=== PATIENT | male | born 1960 | race Caucasian/White ===

== ENCOUNTER 2016-08-26 19:33 | Emergency (ER) | payer BC, MEDICAID ==
[~2016-08-26] VITALS: Ht 175.3 cm; Wt 79.0 kg
[~2016-08-26 19:33] MED LIST: AMLO-218 PO; DAL15 PO; DIPH1TAB25 PO; ESOM20CA PO; FURO20TA3 PO; MIRALAX PO; OMEPRAZOLE PO
[2016-08-26 19:36] VITALS: Ht 175.3 cm; Wt 79.0 kg
--- NOTE | 2016-08-26 20:58 | ERA ---
ER Documentation Chief Complaint Date/Time DATE: 08/26/16 TIME: 20:57 Chief Complaint constipation with abdominal pain and vomiting for past 3 days HPI The patient is a 55-year-old male, presenting to the ER because of abdominal pain, associated with constipation and vomiting for the last 3 days. He had hemorrhoidectomy on July 04, 2016 and is taking [place] for pain. He was seen by his general surgeon 10 days ago. Denies fever, chills, neck pain, chest pain, dyspnea. The abdominal pain is diffuse, worse with constipation, he denies dysuria. He does not smoke, drinks socially Past medical history: Hypertension, cholelithiasis, history of peptic ulcer Past surgical history: Had colonoscopy and EGD in 2013 with polypectomy, history of insertion and removal of lap band in 2007 ROS All systems reviewed and are negative except as per history of present illness. Medications Home Meds Active Scripts Polyethylene Glycol* (Miralax*) 17 Gm Powd.pack, 17 GM PO DAILY, #7 Prov:WALDO SUMNER MD 08/27/16 Tramadol HCl (Tramadol HCl) 50 Mg Tablet, 50 MG PO Q6, #20 TAB Prov:WALDO SUMNER MD 08/27/16 Reported Medications [Miralax] No Conflict Check, PO 12/08/13 [Omeprazole] No Conflict Check, PO 12/08/13 Flurazepam HCl* (Dalmane*) 15 Mg Capsule, 15 MG PO HS Y for INSOMNIA, CAP 10/16/13 Diphenoxylate Hcl-Atropine* (Lomotil*) 1 Tab Tab, 1 TAB PO TID Y for DIARRHEA, TAB 10/16/13 Esomeprazole Mag Trihydrate (Nexium) 20 Mg Capsule.dr, 20 MG PO TID, CAP 10/16/13 Furosemide* (Furosemide*) 20 Mg Tablet, 20 MG PO DAILY, TAB 10/16/13 Amlodipine Besylate* (Norvasc*) 10 Mg Tablet, 10 MG PO DAILY, TAB 10/16/13 Allergies Allergies: Coded Allergies: Penicillins (Unverified Allergy, Unknown, 10/16/13) PMhx/Soc History of Surgery: Yes (PARTIAL GASTRECTOMY, STOMACH ABSCESS, ULCERS, LEFT WRIST) Anesthesia Reaction: No Hx Neurological Disorder: No Hx Respiratory Disorders: No Hx Cardiac Disorders: Yes (HTN) Hx Psychiatric Problems: No Hx Miscellaneous Medical Probl: No Hx Alcohol Use: Yes (OCCASIONAL) Hx Substance Use: No Hx Tobacco Use: No Physical Exam Vitals Vital Signs Date Time Temp Pulse Resp B/P Pulse Ox O2 Delivery O2 Flow Rate FiO2 08/26/16 23:16 62 16 146/84 99 Room Air 08/26/16 21:58 90 16 152/90 99 Room Air 08/26/16 19:36 97.8 100 18 160/82 97 Physical Exam Const: No acute distress. Head: Atraumatic. Eyes: Normal Conjunctiva. ENT: Normal External Ears, Nose and Mouth. Neck: Full range of motion. No meningismus. Resp: Clear to auscultation bilaterally. Cardio: Regular rate and rhythm, no murmurs. Abd: Soft, non distended, normal bowel sounds, vague and diffuse abdominal tenderness, no rigidity, rebound, CVA tenderness Skin: No petechiae or rashes. Back: No midline or flank tenderness. Ext: No cyanosis, or edema. Neur: Awake and alert. No focal deficit Psych: Normal Mood and Affect. Result Diagram: 08/26/16214408/26/162144 Results 24 hrs Laboratory Tests Test 08/26/16 21:45 White Blood Count 8.810^3/ul Red Blood Count 5.0010^6/ul Hemoglobin 14.0g/dl Hematocrit 43.6% Mean Corpuscular Volume 87.2fl Mean Corpuscular Hemoglobin 28.0pg Mean Corpuscular Hemoglobin Concent 32.1g/dl Red Cell Distribution Width 13.9% Platelet Count 43425^3/UL Mean Platelet Volume 11.8fl Neutrophils % 78.1% Lymphocytes % 10.1% Monocytes % 11.2% Eosinophils % 0.1% Basophils % 0.2% Nucleated Red Blood Cells % 0.0/100WBC Neutrophils # 6.910^3/ul Lymphocytes # 0.910^3/ul Monocytes # 1.010^3/ul Eosinophils # 0.010^3/ul Basophils # 0.010^3/ul Nucleated Red Blood Cells # 0.010^3/ul Sodium Level 145mmol/L Potassium Level 3.4mmol/L Chloride Level 108mmol/L Carbon Dioxide Level 30mmol/L Anion Gap 10 Blood Urea Nitrogen 9mg/dl Creatinine 0.72mg/dl Glucose Level 108mg/dl Calcium Level 9.4mg/dl Total Bilirubin 0.9mg/dl Direct Bilirubin 0.00mg/dl Indirect Bilirubin 0.9mg/dl Aspartate Amino Transf (AST/SGOT) 27IU/L Alanine Aminotransferase (ALT/SGPT) 37IU/L Alkaline Phosphatase 73IU/L Total Protein 7.7g/dl Albumin 4.4g/dl Globulin 3.30g/dl Albumin/Globulin Ratio 1.33 Lipase 33U/L Current Medications Medications (Trade) Dose Ordered Sig/Frankie Route PRN Reason Start Time Stop Time Status Last Admin Dose Admin Morphine Sulfate (morphine) 4 mg ONCE STAT IV 08/26/16 21:27 08/26/16 21:29 DC 08/26/16 21:44 Ondansetron HCl (Zofran Inj) 4 mg ONCE STAT IV 08/26/16 21:27 08/26/16 21:29 DC 08/26/16 21:43 Hydromorphone HCl (Dilaudid) 1 mg ONCE STAT IV 08/26/16 23:01 08/26/16 23:06 DC 08/26/16 23:14 Potassium Chloride (Klor-Con 20) 20 meq ONCE STAT PO 08/27/16 01:14 08/27/16 01:15 UNV Procedures/[place] [id number] Radiology Main Line: [phone] DIAGNOSTIC IMAGING REPORT Patient: JERI MASSEY : 1960 Age: 55 Sex: M [id number] DOS: 08/26/162126 Ordering MD: WALDO SUMNER MD Location: E/R Room/Bed: PROCEDURE: CT ABDOMEN/PELVIS WITHOUT CONTRAST CLINICAL INDICATION: 55-year-old male with abdominal pain. TECHNIQUE: The study was performed utilizing a [employer] VCT 64-slice CT scanner. Direct axial sections were obtained through the abdomen and pelvis without the use of intravenous contrast material. Sagittal and coronal reformations were obtained. One or more of the following dose reduction techniques were utilized: automated exposure control, adjustment of the mA and/ or kV according to patient's size or use of iterative reconstruction technique. The images were reviewed on a PACS workstation. CTD/vol = 10.1 mGy; Total Exam DLP = 607.2 mGy-cm. COMPARISON: N/retroperitoneum July 23, 2013. FINDINGS: There is mild lingular scarring. There is trace bibasilar subsegmental atelectasis. There is no evidence for significant pleural effusion. The liver has a normal size and contour without focal areas of abnormal density. No intrahepatic nor extrahepatic biliary ductal dilatation is seen. The gallbladder contains layering sludge as well as multiple non dependent cholesterol stones without significant wall thickening or pericholecystic fluid. The pancreas is atrophic but without areas of abnormal attenuation. The spleen is identified and has a normal size without abnormal density. The adrenal glands are unremarkable. There is a nonobstructing right mid renal calculus measuring 5 x 5 x 3 mm. The left kidney is without abnormal density, calculi or obstruction. The urinary bladder contains urine. There is evidence for prior gastric surgery. There is dilated fluid-filled loops of small bowel and colon extending to the rectosigmoid region where there is retained stool. The appendix is diminutive and is without abnormal thickening or surrounding inflammatory reaction. There is no significant free fluid. The aortoiliac vessels are without aneurysmal dilatation. Mild degenerative changes are seen within the spine. IMPRESSION: 1. Cholelithiasis. 2. Nonobstructing mid right renal calculus. 3. Prior gastric surgery. 4. Dilated fluid-filled loops of small bowel and colon with mild retained stool within the rectosigmoid region without obstruction. This is suggestive of an enteritis. Clinical correlation is necessary. 5. Mild degenerative changes within the spine. .Nikolai Evans MD, MD Date Time Electronically viewed and signed by .Nikolai Evans MD, on 08/26/2016 23:50 .M/ CC: WALDO SUMNER MD MEDICAL MAKING DECISION: The patient is a 55-year-old male, presenting with acute abdominal pain, most likely due to acute on chronic constipation, acute hypokalemia. He was treated with morphine 4 mg IV and then Dilaudid 1 mg IV for pain, Zofran 4 mg IV for nausea and potassium chloride 20 mEq p.o. for low potassium with good response The differential diagnoses considered include but are not limited to cholelithiasis, cholecystitis, cystitis, pancreatitis, hepatitis, gastritis, peptic ulcer disease, gastric ulcer, appendicitis, diverticulitis, cholangitis, choledocholithiasis, partial small bowel obstruction. Departure Diagnosis: Primary Impression: Abdominal pain Additional Impression: Constipation Condition: Good Comments He was discharged with Ultram and MiraLAX I discussed the findings with the patient. I advised the patient to follow-up with the primary physician in about 1-2 days, sooner if needed and return if any concern. WALDO SUMNER MD August 26, 2016 20:58
[2016-08-26] MEDS ORDERED: morphine 4 MG/ML VIAL IV STA (21:27)
[2016-08-26] MEDS ORDERED: ONDANSETRON 4 MG INJ IV STA (21:27)
[2016-08-26 22:01] LABS: ADD SCAN DIFF NO
[2016-08-26 22:04] LABS: BASOPHILS % 0.2 % (0.0-2.0); EOSINOPHILS % 0.1 % (0.0-7.0); HEMATOCRIT 43.6 % (42.0-52.0); LYMPHOCYTES # 0.9 10^3/ul (0.8-2.9); LYMPHOCYTES % 10.1 % (15.0-51.0); MEAN CORPUSCULAR HGB CONC 32.1 g/dl (32.0-37.0); MEAN CORPUSCULAR VOLUME 87.2 fl (82.0-101.0); MEAN PLATELET VOLUME 11.8 fl (7.4-10.4); MONOCYTES % 11.2 % (0.0-11.0); NEUTROPHIL # 6.9 10^3/ul (1.6-7.5); NEUTROPHILS % 78.1 % (39.0-77.0); PLATELET COUNT 193 10^3/UL (140-415); RED CELL DISTRIBUTION WIDTH 13.9 % (11.5-14.5); WHITE BLOOD COUNT 8.8 10^3/ul (4.8-10.8)
[2016-08-26 22:19] LABS: ALBUMIN 4.4 g/dl (3.3-4.9)
[2016-08-26 22:20] LABS: POTASSIUM 3.4 mmol/L (3.5-5.1)
[2016-08-26 22:22] LABS: ALBUMIN/GLOBULIN RATIO 1.33; BILIRUBIN,INDIRECT 0.9 mg/dl (0-1.1); BILIRUBIN,TOTAL 0.9 mg/dl (0.2-1.3); CREATININE 0.72 mg/dl (0.61-1.24); TOTAL PROTEIN 7.7 g/dl (6.1-8.1)
[2016-08-26 22:23] LABS: CALCIUM 9.4 mg/dl (8.4-10.2)
[2016-08-26] MEDS ORDERED: HYDROmorphONE 1 MG/ML SYG IV STA (23:01)
--- NOTE | 2016-08-26 23:51 | RADRPT ---
PROCEDURE: CT ABDOMEN/PELVIS WITHOUT CONTRAST CLINICAL INDICATION: 55-year-old male with abdominal pain. TECHNIQUE: The study was performed utilizing a [employer] VCT 64-slice CT scanner. Direct axia l sections were obtained through the abdomen and pelvis without the use of intravenous contrast mate rial. Sagittal and coronal reformations were obtained. One or more of the following dose reduction t echniques were utilized: automated exposure control, adjustment of the mA and/or kV according to pat ient's size or use of iterative reconstruction technique. The images were reviewed on a PACS workst [employer]. CTD/vol = 10.1 mGy; Total Exam DLP = 607.2 mGy-cm. COMPARISON: N/retroperitoneum July 23, 2013. FINDINGS: There is mild lingular scarring. There is trace bibasilar subsegmental atelectasis. There is no ev idence for significant pleural effusion. The liver has a normal size and contour without focal area s of abnormal density. No intrahepatic nor extrahepatic biliary ductal dilatation is seen. The gallb ladder contains layering sludge as well as multiple non dependent cholesterol stones without signifi cant wall thickening or pericholecystic fluid. The pancreas is atrophic but without areas of abnorma l attenuation. The spleen is identified and has a normal size without abnormal density. The adrenal glands are unremarkable. There is a nonobstructing right mid renal calculus measuring 5 x 5 x 3 mm. The left kidney is without abnormal density, calculi or obstruction. The urinary bladder contains urine. There is evidence for prior gastric surgery. There is dilated fluid-filled loops of small tianna wel and colon extending to the rectosigmoid region where there is retained stool. The appendix is diminutive and is without abnormal thickening or surrounding inflammatory reaction. There is no sign ificant free fluid. The aortoiliac vessels are without aneurysmal dilatation. Mild degenerative shamir nges are seen within the spine. IMPRESSION: 1. Cholelithiasis. 2. Nonobstructing mid right renal calculus. 3. Prior gastric surgery. 4. Dilated fluid-filled loops of small bowel and colon with mild retained stool within the rectosig moid region without obstruction. This is suggestive of an enteritis. Clinical correlation is necess kirsten. 5. Mild degenerative changes within the spine. .Nikolai Evans MD, MD Date Time Electronically viewed and signed by .Nikolai Evans MD, MD on 08/26/2016 23:50 .M/
[2016-08-27] MEDS ORDERED: POTASSIUM CHLORIDE (SR) 20 MEQ TAB PO STA (01:14)
[2016-08-27] MEDS ORDERED: TRAM50TA2 PO (01:15)
[2016-08-27] MEDS ORDERED: POLY17PO6 PO (01:16)
[2016-08-27 01:28] VITALS: BP 145/90; PULSE 59; RESP 18
== END 2016-08-27 01:31 | disposition home or self-care (01) ==
LOC: E/R 19:33
DX: R10.84 Generalized abdominal pain (principal); I10 Essential (primary) hypertension
CPT/HCPCS: 74176; 80053; 83690; 85025; J1170; J2270; J2405; Z7610; 36415; 96374; 96375

== ENCOUNTER 2017-09-17 20:17 | Emergency (ER) | END 2017-09-18 01:29 | disposition home or self-care (01) ==

== ENCOUNTER 2017-09-18 14:17 | Inpatient (IN) | END 2017-09-19 16:00 | disposition left against medical advice (07) | DRG 694 ==

== ENCOUNTER 2018-01-06 19:15 | Emergency (ER) | END 2018-01-07 02:45 | disposition home or self-care (01) ==